=== PATIENT | male | born 1960 | race Caucasian/White ===

== ENCOUNTER 2020-01-15 09:19 | Emergency (ER) | payer OTHER, SELFPAY ==
[2020-01-15] VITALS (20 sets, daily range): BP systolic 110–197; BP diastolic 58–98; PULSE 80–141; RESP 14–24; TEMP 36.8; O2SAT 94–100
--- NOTE | 2020-01-15 09:24 | ED_ITS ---
HPI - General Adult General Chief complaint: Arrhythmia/Palpitations Stated complaint: Pulmonary problems/heart gurgling Time Seen by Provider: 01/15/20 09:22 Source: patient Mode of arrival: Ambulatory Limitations: no limitations History of Present Illness HPI narrative: 59-year-old otherwise healthy male here for evaluation of some problems breathing and lightheaded and feel like there is problem with his heart. He states that the symptoms started approximately 15 days ago with what he describes as a panic attack. He has had a history of anxiety in the past but does not take any medications for. Does not remember exactly what caused the attack at the time. Since then he has had lightheadedness and feeling like his heart is beating fast in some shortness of breath. No fevers. Has never had anything like this in the past and has not tried anything for symptoms prior to arrival. Related Data Home Medications Medication Instructions Recorded Confirmed ibuprofen 400 mg PO Q6H PRN 01/15/20 01/15/20 zolpidem [Ambien] 5 mg PO BEDTIME PRN 01/15/20 01/15/20 Previous Rx's Medication Instructions Recorded metoprolol tartrate 12.5 mg PO DAILY #30 tab 01/15/20 Allergies Allergy/AdvReac Type Severity Reaction Status Date / Time No Known Drug Allergies Allergy Verified 01/15/20 09:30 Review of Systems Constitutional Constitutional: Denies chills, Denies fever(s) and Denies headache(s) ENT Ears, Nose, Mouth, and Throat: Denies headache(s) Cardiovascular Cardiovascular: Denies chest pain, Reports rapid heart rate, Reports irregular heart rhythm and Reports dyspnea Respiratory Respiratory: Denies cough and Reports dyspnea Gastrointestinal Gastrointestinal: Denies abdominal pain, Denies nausea and Denies vomiting Genitourinary Genitourinary: Denies dysuria Genitourinary: Denies dysuria Musculoskeletal Musculoskeletal: Denies arthralgias and Denies myalgias Integumentary/Breasts Skin/Breast: Denies rash Neurologic Neurologic: Denies behavioral changes and Denies headache(s) Psychiatric Psychiatric: Reports anxiety and Denies behavioral changes Hematologic/Lymphatic Hematologic/Lymphatic: Denies easy bleeding and Denies easy bruising Allergic/Immunologic Allergic/Immunologic: Denies urticaria Patient History Medical History Anxiety (Acute) Social History Smoking Status: Never smoker Exam Initial Vital Signs Initial Vital Signs: Vital Signs Temperature 98.3 F 01/15/20 09:20 Pulse Rate 122 H 01/15/20 09:20 Respiratory Rate 20 01/15/20 09:20 Blood Pressure 170/90 H 01/15/20 09:20 Pulse Oximetry 100 01/15/20 09:20 Const General: cooperative, comfortable and well developed Limitations: mental status not altered HENMT Head: normal to inspection and normocephalic Resp Effort & Inspection: normal respiratory effort Auscultation: clear to auscultation bilaterally Cardio Rate: tachycardic Rhythm: abnormal rhythm Pulses: radial pulses present GI Inspection: non-distended Palpation: soft Skin Lesions: no lesions Rashes: no rashes Neuro General: patient alert, patient awake and patient oriented x3 Cognition: normal cognition Speech: speech normal Extrem General: normal to inspection and capillary refill normal Psych Appearance: grossly normal and well kempt Course Orders Ordered: ED Orders 01/15/20 09:20 Complete Blood Count AUTO DIFF Stat Comprehensive Metabolic Panel Stat Lipase Stat Magnesium Stat Partial Thromboplastin Time Stat Prothrombin Time INR Stat 01/15/20 09:23 XR chest 1V Stat EKG-12 Lead Stat 01/15/20 10:21 CT chest w con Stat 01/15/20 11:51 COVID19 -ED/INPAT/OR/L&D Stat Discontinued Medications Sodium Chloride (Normal Saline 0.9%) 1,000 mls @ 1,000 mls/hr IV BOLUS ONE Stop: 01/15/20 11:20 Last Infusion: 01/15/20 12:18 Dose: 0 mls/hr Documented by: Admin: 01/15/20 10:46 Dose: 1,000 mls/hr Documented by: EUSEBIOOTESimeon Lorazepam (Ativan) 0.5 mg IV NOW ONE Stop: 01/15/20 10:23 Last Admin: 01/15/20 10:46 Dose: 0.5 mg Documented by: LESVIA Metoprolol Tartrate (Lopressor) 5 mg IV NOW ONE Stop: 01/15/20 09:27 Last Admin: 01/15/20 09:36 Dose: 5 mg Documented by: RUDDY Vital Signs Vital signs: Vital Signs - 8 hr 01/15/20 09:20 01/15/20 09:25 01/15/20 09:30 Temperature 98.3 F Pulse Rate 122 H 125 H 141 H Respiratory Rate 20 18 14 Blood Pressure 170/90 H 175/88 H Pulse Oximetry 100 98 98 01/15/20 09:45 01/15/20 09:46 01/15/20 09:50 Temperature Pulse Rate 124 H 95 H 92 H Respiratory Rate 24 14 14 Blood Pressure 110/58 L 110/58 L 121/72 Pulse Oximetry 97 96 96 01/15/20 10:00 01/15/20 10:15 01/15/20 10:30 Temperature Pulse Rate 94 H 98 H 101 H Respiratory Rate 17 14 15 Blood Pressure 124/83 122/90 Pulse Oximetry 95 96 97 01/15/20 10:31 01/15/20 10:46 01/15/20 11:00 Temperature Pulse Rate 90 92 H 84 Respiratory Rate 15 15 19 Blood Pressure 133/85 Pulse Oximetry 96 100 97 01/15/20 11:15 01/15/20 11:30 01/15/20 11:45 Temperature Pulse Rate 84 89 89 Respiratory Rate 19 19 21 Blood Pressure Pulse Oximetry 96 97 97 01/15/20 11:59 01/15/20 12:00 01/15/20 12:01 Temperature Pulse Rate 97 H 91 H 107 H Respiratory Rate 20 20 24 Blood Pressure 144/98 H 197/98 H Pulse Oximetry 99 99 94 01/15/20 12:15 Temperature Pulse Rate 99 H Respiratory Rate 17 Blood Pressure 136/82 Pulse Oximetry 99 Medical Decision Making Lab Data Lab results reviewed: Yes I reviewed the patient's lab results. Result diagrams: 01/15/20 09:20 01/15/20 09:20 Labs: Lab Results 01/15/20 01/15/20 01/15/20 Range/Units 09:20 09:20 09:20 WBC 8.6 (4.5-11.0) X10^3/uL RBC 4.55 (4.5-5.9) X10^6/uL Hgb 15.0 (13.5-17.5) g/dL Hct 43.8 (41-53) % MCV 96.3 (80-100) fL MCH 33.0 (26-34) PG MCHC 34.3 (30-36) % RDW 12.5 (11.6-14.8) % Plt Count 196 (150-400) X10^3/uL Neut % (Auto) 60.1 (50-75) % Lymph % (Auto) 30.1 (25-40) % Addison % (Auto) 7.7 (3-14) % Eos % (Auto) 1.5 L (2-4) % Baso % (Auto) 0.6 (0-2) % Neut # (Auto) 5200 (1139-3476) /uL Lymph # (Auto) 2600 (0255-6112) /uL Addison # (Auto) 700 (0-900) /uL Eos # (Auto) 100 (0-450) /uL Baso # (Auto) 100 (0-100) /uL PT 11.9 (10.1-12.7) SECONDS INR 1.0 (0.9-1.3) APTT 31 (26.4-36.2) SECONDS Sodium 140 (137-145) mmol/L Potassium 4.2 (3.4-5.1) mmol/L Chloride 103 (98-107) mmol/L Carbon Dioxide 31 (22-32) mmol/L BUN 17 (9-20) mg/dL Creatinine 0.99 (0.66-1.25) mg/dL Estimated GFR > 60.0 (>60) mL/min BUN/Creatinine Ratio 17.2 (6-22) Glucose 96 (70-100) mg/dL Calcium 9.9 (8.4-10.2) mg/dL Magnesium (1.6-2.3) mg/dL Total Bilirubin 0.7 (0.2-1.3) mg/dL AST 34 (17-59) IU/L ALT 38 (<50) IU/L Alkaline Phosphatase 78 (38-126) U/L Total Protein 7.9 (6.3-8.2) g/dL Albumin 4.7 (3.5-5.0) g/dL Globulin 3.2 (1.7-4.1) g/dL Albumin/Globulin Ratio 1.5 (1.0-2.8) Lipase 222 (23-300) U/L COVID-19 PCR (Negative) 01/15/20 01/15/20 Range/Units 09:20 11:51 WBC (4.5-11.0) X10^3/uL RBC (4.5-5.9) X10^6/uL Hgb (13.5-17.5) g/dL Hct (41-53) % MCV (80-100) fL MCH (26-34) PG MCHC (30-36) % RDW (11.6-14.8) % Plt Count (150-400) X10^3/uL Neut % (Auto) (50-75) % Lymph % (Auto) (25-40) % Addison % (Auto) (3-14) % Eos % (Auto) (2-4) % Baso % (Auto) (0-2) % Neut # (Auto) (2888-2059) /uL Lymph # (Auto) (1723-3038) /uL Addison # (Auto) (0-900) /uL Eos # (Auto) (0-450) /uL Baso # (Auto) (0-100) /uL PT (10.1-12.7) SECONDS INR (0.9-1.3) APTT (26.4-36.2) SECONDS Sodium (137-145) mmol/L Potassium (3.4-5.1) mmol/L Chloride (98-107) mmol/L Carbon Dioxide (22-32) mmol/L BUN (9-20) mg/dL Creatinine (0.66-1.25) mg/dL Estimated GFR (>60) mL/min BUN/Creatinine Ratio (6-22) Glucose (70-100) mg/dL Calcium (8.4-10.2) mg/dL Magnesium 2.2 (1.6-2.3) mg/dL Total Bilirubin (0.2-1.3) mg/dL AST (17-59) IU/L ALT (<50) IU/L Alkaline Phosphatase (38-126) U/L Total Protein (6.3-8.2) g/dL Albumin (3.5-5.0) g/dL Globulin (1.7-4.1) g/dL Albumin/Globulin Ratio (1.0-2.8) Lipase (23-300) U/L COVID-19 PCR Positive H (Negative) Imaging Data Chest x-ray: Radiologist's Impression: [address] [address] XRay Report Signed Patient: Librado Elizondo WMR#: [id number] : [id number]:[id number] Age/Sex: 59 / MDate of Service: 01/15/20 Loc: ED Accession Number: [id number] Procedure: XR chest 1V Ordering Provider: Prem Morgan D.O. PROCEDURE: XR CHEST 1V INDICATIONS: Shortness of breath TECHNIQUE: One view of the chest was acquired. COMPARISON: None. FINDINGS: Surgical changes and devices: None. Lungs and pleura: Vague focal opacity, left upper lobe, possibly representing focal left upper lobe mass versus mass-like consolidation. Lungs otherwise clear. No pleural effusions or pneumothorax. Mediastinum: Mediastinal contours appear normal. Heart size is normal. Bones and chest wall: No suspicious bony lesions. Overlying soft tissues appear unremarkable. IMPRESSION: Vague left upper lobe focal opacity, consider focal left upper lobe mass versus masslike consolidation. Recommend CT chest. Comment: Findings were discussed with Dr. Morgan at the time of study dictation. Dictated by: Tripp Gonzalez M.D. on 01/15/2020 at 9:57 Approved by: Tripp Gonzalez M.D. on 01/15/2020 at 10:05 CT scan - chest: Radiologist's Impression: [address] [address] [address] Scan Report Signed Patient: Librado Elizondo WMR#: [id number] : 1Acct:[id number] Age/Sex: 59 / MDate of Service: 01/15/20 Loc: ED Accession Number: [id number] Procedure: CT chest w con Ordering Provider: Prem Morgan D.O. PROCEDURE: CT CHEST W CON INDICATIONS: Left upper lobe mass CT recommended by reds TECHNIQUE: After the administration of intravenous contrast, 5 mm thick sections acquired from the pulmonary apices to the posterior costophrenic angles. 1 mm axial lung, 5 mm thick coronal and sagittal reformats and 7 mm axial MIP were acquired. For radiation dose reduction, the following was used: automated exposure control, adjustment of mA and/or kV according to patient size. COMPARISON: [facility] , XR CHEST 1V, 01/15/2020, 9:28. FINDINGS: Image quality: Excellent. Lungs and pleura: There are multiple bilateral small and intermediate sized areas of relatively sharply demarcated alveolar infiltration within the upper, mid and lower lungs of this patient. No solid mass lesion is found, no suspicion for pulmonary embolus.. No pleural effusions or pneumothorax. Central and peripheral airways are patent and normal in caliber. Mediastinum: Heart size is normal. No pericardial effusion. No mediastinal or hilar adenopathy by size criteria. Thoracic aorta and central pulmonary arteries are normal in size. Esophagus is normal in caliber. No hiatal hernia. Bones and chest wall: No suspicious bony lesions. No vertebral body compression fractures. No axillary or supraclavicular adenopathy by size criteria. Thyroid gland appears normal. Abdomen: Visualized upper abdominal solid organs appear normal. Upper abdominal bowel loops are normal in caliber. IMPRESSION: Findings called to the emergency room physician caring for the patient. The imaging findings are highly suspicious for representing atypical infection such as viral etiology. No mass lesion present. The extent of disease is relatively p rominent bilaterally, but comprised of relatively radiolucent areas of small and intermediate sized sharply demarcated areas of alveolitis. The most prominent area corresponds to the left upper lobe region seen by plain film earlier today. Dictated by: Karlo Boykin M.D. on 01/15/2020 at 11:27 Approved by: Karlo Boykin M.D. on 01/15/2020 at 11:37 ECG Data Attestation: I personally reviewed and interpreted this ECG as follows: Prior ECG tracings: not available for review Interpretation: Atrial tachycardia with frequent PACs Ventricular rate of 113 Normal axis Normal QRS No ST T wave changes MDM Narrative Medical decision making narrative: Patient was tachycardic upon arrival. Initia lly it appeared that he was atrial fibrillation however receiving the EKG he is in sinus rhythm with frequent PACs. I did discuss the case and faxed the EKGs to Dr. Garvin with cardiology who agreed that it is sinus rhythm with frequent PACs. He recommended checking electrolytes which we did which were unremarkable and also sending the patient home with metoprolol and having him follow-up with his primary provider to discuss a Holter monitor and stress test and echocardiogram. I discussed all this with the patient. We initially received chest x-ray which was concerning for a left upper lobe mass/nodule. It was recommended that he have a CT scan of his chest which was ordered and received a call from Radiology that showed a viral pattern concerning for COVID-19. His subsequent COVID-19 testing was positive. Patient has no symptoms consistent with this. His last potential symptoms were greater than 2 weeks ago. I did discuss this with the patient. Informed him about self quarantine and contacting his work. We discussed return precautions with regard to this. He expressed understanding and agreement. Discharge Plan Departure Patient Disposition: Home Clinical Impression: Sinus tachycardia, Atrial premature contractions, 2019 novel coronavirus detected Instructions: DI for Tachycardia Activity Restrictions/Additional Instructions: Start taking the metoprolol that you were given a prescription for here in the emergency department as directed. I recommend that you contact your primary provider to discuss the indications for a Holter monitor, echocardiogram and stress test. If you have continued symptoms or worsening symptoms to include chest pain or shortness of breath or lightheadedness please return to the emergency department for further evaluation. It was also found on your workup today that you have COVID-19. It is important that you self quarantine. Is also important that you wearing face covering and wash your hands and stay away from others. Also recommend you contact your primary provider to discuss further workup and also recommend you contact your employer to let them know that you were positive. Prescriptions: New metoprolol tartrate 25 mg tablet 12.5 mg PO DAILY Qty: 30 RF: 0 No Action ibuprofen 200 mg Tablet 400 mg PO Q6H PRN (Reason: Pain (Scale Score 1-3)) RF: 0 zolpidem [Ambien] 5 mg Tablet 5 mg PO BEDTIME PRN (Reason: Insomnia) RF: 0 Stand Alone Forms: Work Release Note
[2020-01-15 09:35] LABS: Add Manual Diff / Slide Review NO; Basophils Absolute Auto 100 /uL (0-100); Basophils Percent Auto 0.6 % (0-2); Eosinophils Absolute Auto 100 /uL (0-450); Eosinophils Percent Auto 1.5 % (2-4); Hematocrit 43.8 % (41-53); Lymphocytes Absolute Auto 2600 /uL (1100-4500); Lymphocytes Percent Auto 30.1 % (25-40); Mean Corpuscular HGB Conc 34.3 % (30-36); Mean Corpuscular Volume 96.3 fL (80-100); Monocytes Absolute Auto 700 /uL (0-900); Monocytes Percent Auto 7.7 % (3-14); Neutrophils Absolute Auto 5200 /uL (1500-7000); Neutrophils Percent Auto 60.1 % (50-75); Platelet Count 196 X10^3/uL (150-400); Red Blood Cell Count 4.55 X10^6/uL (4.5-5.9); Red Cell Distribution Width 12.5 % (11.6-14.8); White Blood Cell Count 8.6 X10^3/uL (4.5-11.0)
[2020-01-15] MEDS: METOPROLOL TARTRATE 5 MG/5 ML INJ IV (09:36)
[2020-01-15 09:41] LABS: Prothrombin Time 11.9 SECONDS (10.1-12.7)
[2020-01-15 09:44] LABS: PTT Partial Thromboplastin Tim 31 SECONDS (26.4-36.2)
[2020-01-15 09:49] LABS: Alanine Aminotransferase 38 IU/L (<50); Albumin 4.7 g/dL (3.5-5.0); Albumin Globulin Ratio 1.5 (1.0-2.8); Alkaline Phosphatase 78 U/L (38-126); Aspartate Aminotransferase 34 IU/L (17-59); BUN Creatinine Ratio 17.2 (6-22); Bilirubin Total 0.7 mg/dL (0.2-1.3); Blood Urea Nitrogen 17 mg/dL (9-20); Calcium 9.9 mg/dL (8.4-10.2); Carbon Dioxide 31 mmol/L (22-32); Chloride 103 mmol/L (98-107); Estimated Glomerular Filt Rate > 60.0 mL/min (>60); Globulin 3.2 g/dL (1.7-4.1); Glucose 96 mg/dL (70-100); HEMOLYSIS < 15 (0-50); Lipase 222 U/L (23-300); Potassium 4.2 mmol/L (3.4-5.1); Sodium 140 mmol/L (137-145); Total Protein 7.9 g/dL (6.3-8.2)
[2020-01-15 09:59] LABS: Magnesium 2.2 mg/dL (1.6-2.3)
--- NOTE | 2020-01-15 10:21 | DI.CT.S_ITS ---
PROCEDURE: CT CHEST W CON INDICATIONS: Left upper lobe mass CT recommended by reds TECHNIQUE: After the administration of intravenous contrast, 5 mm thick sections acquired from the pulmonary apices to the posterior costophrenic angles. 1 mm axial lung, 5 mm thick coronal and sagittal reformats and 7 mm axial MIP were acquired. For radiation dose reduction, the following was used: automated exposure control, adjustment of mA and/or kV according to patient size. COMPARISON: [facility], CR, XR CHEST 1V, 01/15/2020, 9:28. FINDINGS: Image quality: Excellent. Lungs and pleura: There are multiple bilateral small and intermediate sized areas of relatively sharply demarcated alveolar infiltration within the upper, mid and lower lungs of this patient. No solid mass lesion is found, no suspicion for pulmonary embolus.. No pleural effusions or pneumothorax. Central and peripheral airways are patent and normal in caliber. Mediastinum: Heart size is normal. No pericardial effusion. No mediastinal or hilar adenopathy by size criteria. Thoracic aorta and central pulmonary arteries are normal in size. Esophagus is normal in caliber. No hiatal hernia. Bones and chest wall: No suspicious bony lesions. No vertebral body compression fractures. No axillary or supraclavicular adenopathy by size criteria. Thyroid gland appears normal. Abdomen: Visualized upper abdominal solid organs appear normal. Upper abdominal bowel loops are normal in caliber. IMPRESSION: Findings called to the emergency room physician caring for the patient. The imaging findings are highly suspicious for representing atypical infection such as viral etiology. No mass lesion present. The extent of disease is relatively prominent bilaterally, but comprised of relatively radiolucent areas of small and intermediate sized sharply demarcated areas of alveolitis. The most prominent area corresponds to the left upper lobe region seen by plain film earlier today. Dictated by: Karlo Boykin M.D. on 01/15/2020 at 11:27 Approved by: Karlo Boykin M.D. on 01/15/2020 at 11:37
[2020-01-15] MEDS: LORazepam 2 MG/ML INJ 0.5 MG IV (10:46)
[2020-01-15] MEDS: SODIUM CHLORIDE 0.9% 1,000 ML 1000 ML IV (10:46)
[2020-01-15 12:21] LABS: COVID19 -Nasal RAPID POSITIVE (Negative)
== END 2020-01-15 12:55 | disposition home or self-care (01) ==
PROVIDERS: Emergency Provider Emergency Medicine
DX: U07.1 COVID-19 (principal); R00.0 Tachycardia, unspecified; R06.00 Dyspnea, unspecified; I49.1 Atrial premature depolarization
CPT/HCPCS: 36415; 71045; 71260; 80053; 83690; 83735; 85025; 85610; 85730; 87635; 93005; 93010; 96361; 96374; 96375; 99284; J2060; Q9967

== ENCOUNTER → 2020-06-13 11:45 | Outpatient (CLI) | payer OTHER, SELFPAY ==
[2020-06-13 12:40] LABS: Cholesterol 207 mg/dL (140-199); HDL Cholesterol 58 mg/dL (40-60); Triglycerides 471 mg/dL (35-150)
== END ==
PROVIDERS: PCP Family Medicine; Referring Provider Internal Medicine Cardiovascular Disease; Visit Provider Internal Medicine Cardiovascular Disease
DX: E78.5 Hyperlipidemia, unspecified (principal)
CPT/HCPCS: 36415; 80061

== ENCOUNTER → 2020-08-07 10:20 | Outpatient (CLI) | payer OTHER, SELFPAY ==
[2020-08-07 11:23] LABS: Cholesterol 209 mg/dL (140-199); HDL Cholesterol 53 mg/dL (40-60); LDL Cholesterol Calculated 76 mg/dL (<100); Triglycerides 398 mg/dL (35-150)
== END ==
PROVIDERS: PCP Family Medicine; Referring Provider Internal Medicine Cardiovascular Disease; Visit Provider Internal Medicine Cardiovascular Disease
DX: E78.2 Mixed hyperlipidemia (principal); E78.5 Hyperlipidemia, unspecified
CPT/HCPCS: 36415; 80061

== ENCOUNTER 2021-04-01 09:30 | Emergency (ER) | payer OTHER, SELFPAY ==
[2021-04-01 09:35] VITALS: BP 163/79; PULSE 70; RESP 16; TEMP 36.4; O2SAT 99; BMI 24.4
--- NOTE | 2021-04-01 09:45 | DI.US.S_ITS ---
PROCEDURE: US PERIPH VENOUS LOW EXTREM RT INDICATIONS: REDNESS MEDIAL KNEE TECHNIQUE: Real-time imaging, as well as color and pulse Doppler interrogation, were performed of the lower extremity deep veins from the inguinal ligament to the popliteal fossa. COMPARISON: None. FINDINGS: The common femoral, femoral and popliteal veins are normally compressible, and free of intraluminal thrombus. Color and pulse Doppler demonstrate normal phasic intraluminal flow. There is normal augmentation response to distal compression maneuver. IMPRESSION: No DVT in the right lower extremity. Dictated by: Harley Jean M.D. on 04/01/2021 at 10:37 Approved by: Harley Jean M.D. on 04/01/2021 at 10:38
--- NOTE | 2021-04-01 09:46 | ED_ITS ---
HPI - Extremity Problem General Chief complaint: Extremity Problem,Nontraumatic Stated complaint: RT LEG POSS BLOOD CLOT/KNEE SWOLLEN/FOOT NUMB Time Seen by Provider: 04/01/21 09:37 Source: patient Mode of arrival: Ambulatory History of Present Illness HPI Narrative: 60-year-old male nonsmoker with noncontributory medical history presents from the [place] walk-in clinic for evaluation his right knee. He states that he has developed some pain behind his right knee and has some redness and warmth along the medial knee in the absence of any injury or overuse. He has had no fever or chills. He states the pain is worse when he walks and improves with rest. He denies any history of the same. He denies any calf or thigh pain. He denies recent travel, trauma, prior clot. Additionally he has some numbness on the bottom of his right foot which has been present for the past 2-3 days. He denies any back pain groin numbness, tingling or weakness. He was seen at the walk-in clinic and sent here for evaluation of a DVT Related Data Home Medications Medication Instructions Recorded Confirmed ibuprofen 200 mg tablet 400 mg PO Q6H PRN 01/15/20 08/26/20 rosuvastatin 10 mg tablet (Crestor) 10 mg PO DAILY 08/26/20 08/26/20 Previous Rx's Medication Instructions Recorded sildenafil 25 mg tablet 25 mg PO DAILY #20 tab 03/19/20 sertraline 25 mg tablet 25 mg PO DAILY #90 tab 05/28/20 metoprolol tartrate 25 mg tablet 12.5 mg PO DAILY #30 tab 06/04/20 zolpidem 5 mg tablet See Rx Instructions .ROUTE 02/25/21 .COMPLEX #30 tab cephalexin 500 mg capsule 500 mg PO Q6H 7 Days #28 cap 04/01/21 Allergies Allergy/AdvReac Type Severity Reaction Status Date / Time No Known Drug Allergies Allergy Verified 08/26/20 10:15 Review of Systems Review of Systems Narrative: GENERAL: Denies chills, fatigue, malaise, fever, sweats. HEENT: Denies sinus pain, ear pain, sore throat, difficulty swallowing, dizziness. RESPIRATORY: Denies dyspnea, cough, wheezing, hemoptysis, sputum. CARDIOVASCULAR: Denies chest pain, palpitations, orthopnea, edema, GASTROINTESTINAL: Denies nausea, vomiting, abdominal pain, diarrhea, constipation, melena. : Denies dysuria, frequency, incontinence, hematuria, urinary retention. MUSCULOSKELETAL: See HPI SKIN: See HPI NEUROLOGIC: Denies weakness, headache, numbness, change in speech, confusion, seizures, incoordination. PSYCHIATRIC: No concerning psychosocial issues. 12 point review of systems is negative except for those stated above Patient History Medical History (Updated 04/01/21 @ 10:35 by Denys Hair DO) Anxiety Hyperlipidemia Insomnia Tendonitis of finger Social History (System 02/01/20 @ 10:28 by Sofía Mcfarlane) Smoking Status: Never smoker Smoking Status: Never smoker alcohol intake frequency: 0-2 drinks per day Substance Use Type: does not use Exam Narrative Exam Narrative: GEN: AOx3 and in mild distress EYES: Pupils are equal, round, and reactive to light and accommodation. Extraoccular muscles are intact bilaterally. There is no subconjunctival hemorrhage or exudate. CHEST: Lungs are clear to auscultation bilaterally and free of wheezes, rales, or rhonchi. Heart rate is regular rhythm, there are no murmurs, clicks, rubs, or gallops. There is no chest wall tenderness. ABD: Abdomen is soft and nontender. There is no guarding or rebound. Bowel sounds are normal in all 4 quadrants. There is no mass or organomegaly. EXT: Redness, warmth and mild tenderness along the medial joint line of right knee, no effusion, no significant pain with any passive or active range of motion, no ligamentous instability. No swelling SKIN: Warm, pink, and dry. No erythema or rash Initial Vital Signs Initial Vital Signs: Vital Signs Temperature 97.6 F 04/01/21 09:35 Pulse Rate 70 04/01/21 09:35 Respiratory Rate 16 04/01/21 09:35 Blood Pressure 163/79 H 04/01/21 09:35 Pulse Oximetry 99 04/01/21 09:35 Course Orders Ordered: ED Orders 04/01/21 09:45 US periph venous low extrem rt Stat Vital Signs Vital signs: Vital Signs - 8 hr 04/01/21 09:35 Temperature 97.6 F Pulse Rate 70 Respiratory Rate 16 Blood Pressure 163/79 H Pulse Oximetry 99 MDM - Extremity (Nontraumatic) MDM Narrative Medical decision making narrative: Multiple etiologies for patient's symptoms considered including: [DVT versus cellulitis versus septic arthritis versus gout versus other Patient's symptomms, history and imaging would suggest against DVT. Patient's exam demonstrates no painful passive or active range of motion of the knee and very minimal if any effusion, this would suggest against septic arthritis or gouty arthritis. Isolated erythema, warmth and tenderness most consistent with cellulitis. Findings and discharge diagnosis discussed with patient/family followed by verbalization of understanding Return precautions discussed with patient/family whom verbalize understanding. Discharge Plan Departure Patient Disposition: Home Clinical Impression: Cellulitis Instructions: DI for Cellulitis -- Adult Activity Restrictions/Additional Instructions: *You have been diagnosed with [cellulitis of right medial knee, your history, physical exam and ultrasound are reassuring and there is no evidence of a clot. *What to do: *Please continue to take your regular medications as directed. [ x] New medication prescriptions sent to your pharmacy: [[facility] in [place] ] [ ] New medication written as a paper prescription [ ] No new medications given *Please follow up with your primary care provider in 2-3 days, call for an appointment. Let them know you were seen in the Emergency Department and that we ask that you be seen in follow up. We will electronically transmit a record of today's note if your PCP is in our system *Return to Emergency Department if you should have any new, worsening or concerning symptoms, such as [fever greater than 101 F, shaking chills, worsening pain, persistent vomiting or other bothersome symptoms] Prescriptions: New cephalexin 500 mg capsule 500 mg PO Q6H 7 Days Qty: 28 0RF No Action sildenafil 25 mg tablet 25 mg PO DAILY Qty: 20 1RF Rx Instructions: 30-45 mins prior to sexual activity. sertraline 25 mg tablet 25 mg PO DAILY Qty: 90 1RF metoprolol tartrate 25 mg tablet 12.5 mg PO DAILY Qty: 30 0RF zolpidem 5 mg tablet See Rx Instructions .ROUTE .COMPLEX Qty: 30 0RF Rx Instructions: Take 1 tablet by mouth at bedtime for insomnia; rosuvastatin [Crestor] 10 mg tablet 10 mg PO DAILY 0RF ibuprofen 200 mg Tablet 400 mg PO Q6H PRN (Reason: Pain (Scale Score 1-3)) 0RF Referrals: Brien Michelle DO [Primary Care Provider] -
--- NOTE | 2021-04-01 10:42 | ED_ITS ---
HPI - Extremity Problem General Chief complaint: Extremity Problem,Nontraumatic Stated complaint: RT LEG POSS BLOOD CLOT/KNEE SWOLLEN/FOOT NUMB Time Seen by Provider: 04/01/21 09:37 Source: patient Mode of arrival: Ambulatory Related Data Home Medications Medication Instructions Recorded Confirmed ibuprofen 200 mg tablet 400 mg PO Q6H PRN 01/15/20 08/26/20 rosuvastatin 10 mg tablet (Crestor) 10 mg PO DAILY 08/26/20 08/26/20 Previous Rx's Medication Instructions Recorded sildenafil 25 mg tablet 25 mg PO DAILY #20 tab 03/19/20 sertraline 25 mg tablet 25 mg PO DAILY #90 tab 05/28/20 metoprolol tartrate 25 mg tablet 12.5 mg PO DAILY #30 tab 06/04/20 cephalexin 500 mg capsule 500 mg PO Q6H 7 Days #28 cap 04/01/21 zolpidem 5 mg tablet See Rx Instructions .ROUTE 04/01/21 .COMPLEX #30 tab Allergies Allergy/AdvReac Type Severity Reaction Status Date / Time No Known Drug Allergies Allergy Verified 08/26/20 10:15 Patient History Medical History (Updated 04/01/21 @ 10:35 by Denys Hair DO) Anxiety Hyperlipidemia Insomnia Tendonitis of finger Social History (System 02/01/20 @ 10:28 by Sofía Mcfarlane) Smoking Status: Never smoker Smoking Status: Never smoker alcohol intake frequency: 0-2 drinks per day Substance Use Type: does not use Exam Initial Vital Signs Initial Vital Signs: Vital Signs Temperature 97.6 F 04/01/21 09:35 Pulse Rate 70 04/01/21 09:35 Respiratory Rate 16 04/01/21 09:35 Blood Pressure 163/79 H 04/01/21 09:35 Pulse Oximetry 99 04/01/21 09:35 Course Orders Ordered: ED Orders 04/01/21 09:45 US periph venous low extrem rt Stat Vital Signs Vital signs: Vital Signs - 8 hr 04/01/21 09:35 Temperature 97.6 F Pulse Rate 70 Respiratory Rate 16 Blood Pressure 163/79 H Pulse Oximetry 99 MDM - Extremity (Nontraumatic) Imaging Data US - DVT: Radiologist's Impression: Launch?[address] [address] Ultrasound Report Signed Patient: Librado Elizondo MR#: [id number] : 1960 Acct:[id number] Age/Sex: 60 / M Date of Service: 04/01/21 Loc: ED Accession Number: [id number] ?? Procedure: US periph venous low extrem rt Ordering Provider: Denys Hair D.O. PROCEDURE:? US PERIPH VENOUS LOW EXTREM RT ? INDICATIONS:? REDNESS MEDIAL KNEE ? TECHNIQUE:? Real-time imaging, as well as color and pulse Doppler interrogation, were performed of the lower extremity deep veins from the inguinal ligament to the popliteal fossa.? ? COMPARISON:? None. ? FINDINGS:? The common femoral, femoral and popliteal veins are normally compressible, and free of intraluminal thrombus.? Color and pulse Doppler demonstrate normal phasic intraluminal flow.? There is normal augmentation response to distal compression maneuver. ? ? IMPRESSION:? No DVT in the right lower extremity. ? ? Dictated by: Harley Jean M.D. on 04/01/2021 at 10:37 ? ? Approved by: Harley Jean M.D. on 04/01/2021 at 10:38 ? Discharge Plan Departure Patient Disposition: Home Clinical Impression: Cellulitis Instructions: DI for Cellulitis -- Adult Activity Restrictions/Additional Instructions: *You have been diagnosed with [cellulitis of right medial knee, your history, physical exam and ultrasound are reassuring and there is no evidence of a clot. *What to do: *Please continue to take your regular medications as directed. [ x] New medication prescriptions sent to your pharmacy: [[facility] in [place] ] [ ] New medication written as a paper prescription [ ] No new medications given *Please follow up with your primary care provider in 2-3 days, call for an appointment. Let them know you were seen in the Emergency Department and that we ask that you be seen in follow up. We will electronically transmit a record of today's note if your PCP is in our system *Return to Emergency Department if you should have any new, worsening or concerning symptoms, such as [fever greater than 101 F, shaking chills, worsening pain, persistent vomiting or other bothersome symptoms] Prescriptions: New cephalexin 500 mg capsule 500 mg PO Q6H 7 Days Qty: 28 0RF No Action sildenafil 25 mg tablet 25 mg PO DAILY Qty: 20 1RF Rx Instructions: 30-45 mins prior to sexual activity. sertraline 25 mg tablet 25 mg PO DAILY Qty: 90 1RF metoprolol tartrate 25 mg tablet 12.5 mg PO DAILY Qty: 30 0RF zolpidem 5 mg tablet See Rx Instructions .ROUTE .COMPLEX Qty: 30 0RF Rx Instructions: Take 1 tablet by mouth at bedtime for insomnia; rosuvastatin [Crestor] 10 mg tablet 10 mg PO DAILY 0RF ibuprofen 200 mg Tablet 400 mg PO Q6H PRN (Reason: Pain (Scale Score 1-3)) 0RF Referrals: Brien Michelle DO [Primary Care Provider] -
--- NOTE | 2021-04-01 10:58 | PC.NURSE ---
area on rt knee about 8cm round.
[2021-04-01 10:59] VITALS: BP 134/89; RESP 16
== END 2021-04-01 10:59 | disposition home or self-care (01) ==
PROVIDERS: Emergency Provider Emergency Medicine; PCP Family Medicine
DX: L03.115 Cellulitis of right lower limb (principal)
CPT/HCPCS: 93971; 99281; 99283

== ENCOUNTER → 2021-07-02 11:38 | Outpatient (CLI) | payer OTHER, SELFPAY ==
[2021-07-02 12:17] LABS: Hemoglobin A1C% w Est Avg Glu 5.4 % (4.0-6.0)
[2021-07-02 12:19] LABS: Cholesterol 198 mg/dL (140-199); HDL Cholesterol 70 mg/dL (40-60); LDL Cholesterol Calculated 71 mg/dL (<100); Triglycerides 285 mg/dL (35-150)
== END ==
PROVIDERS: PCP Family Medicine; Referring Provider Internal Medicine Cardiovascular Disease; Visit Provider Internal Medicine Cardiovascular Disease
DX: E78.1 Pure hyperglyceridemia (principal); E78.2 Mixed hyperlipidemia
CPT/HCPCS: 36415; 80061; 83036

== ENCOUNTER → 2022-10-29 11:05 | Outpatient (CLI) | payer OTHER, SELFPAY ==
[2022-10-29 12:27] LABS: Cholesterol 185 mg/dL (140-199); HDL Cholesterol 58 mg/dL (40-60); LDL Cholesterol Calculated 60 mg/dL (<100); Triglycerides 335 mg/dL (35-150)
== END ==
PROVIDERS: PCP Family Medicine; Referring Provider Internal Medicine Cardiovascular Disease; Visit Provider Internal Medicine Cardiovascular Disease
DX: E78.5 Hyperlipidemia, unspecified (principal)
CPT/HCPCS: 36415; 80061

== ENCOUNTER → 2022-12-08 11:09 | Outpatient (CLI) | payer OTHER, SELFPAY ==
[2022-12-10 21:56] LABS: Fecal Immunochemical Test Negative (Negative)
== END ==
PROVIDERS: PCP Family Medicine; Referring Provider Family Medicine; Visit Provider Family Medicine
DX: Z12.11 Encounter for screening for malignant neoplasm of colon (principal)
CPT/HCPCS: 82274

== ENCOUNTER → 2023-04-11 09:41 | Outpatient (CLI) | payer OTHER, SELFPAY ==
[2023-04-11 10:43] LABS: Add Manual Diff / Slide Review NO; Basophils Absolute Auto 0 /uL (0-100); Basophils Percent Auto 0.6 % (0-2); Eosinophils Absolute Auto 300 /uL (0-450); Eosinophils Percent Auto 5.3 % (2-4); Hematocrit 41.2 % (41-53); Lymphocytes Absolute Auto 2000 /uL (1100-4500); Lymphocytes Percent Auto 37.7 % (25-40); Mean Corpuscular HGB Conc 33.9 % (30-36); Mean Corpuscular Hemoglobin 32.8 PG (26-34); Mean Corpuscular Volume 96.7 fL (80-100); Monocytes Absolute Auto 400 /uL (0-900); Monocytes Percent Auto 6.9 % (3-14); Neutrophils Absolute Auto 2700 /uL (1500-7000); Neutrophils Percent Auto 49.5 % (50-75); Platelet Count 265 X10^3/uL (150-400); Red Blood Cell Count 4.26 X10^6/uL (4.5-5.9); White Blood Cell Count 5.4 X10^3/uL (4.5-11.0)
[2023-04-11 11:09] LABS: Alanine Aminotransferase 39 IU/L (<50); Albumin 4.6 g/dL (3.5-5.0); Albumin Globulin Ratio 1.6 (1.0-2.8); Alkaline Phosphatase 56 U/L (38-126); Aspartate Aminotransferase 34 IU/L (17-59); BUN Creatinine Ratio 14.8 (6-22); Bilirubin Total 0.7 mg/dL (0.2-1.3); Blood Urea Nitrogen 13 mg/dL (9-20); Calcium 10.2 mg/dL (8.4-10.2); Carbon Dioxide 29 mmol/L (22-32); Chloride 102 mmol/L (98-107); Cholesterol 185 mg/dL (140-199); Estimated Glomerular Filt Rate > 60 mL/min (>60); Globulin 2.8 g/dL (1.7-4.1); Glucose 88 mg/dL (80-110); HDL Cholesterol 54 mg/dL (40-60); HEMOLYSIS < 15 (0-50); LDL Cholesterol Calculated 62 mg/dL (<100); Potassium 4.8 mmol/L (3.4-5.1); Sodium 138 mmol/L (137-145); Total Protein 7.4 g/dL (6.3-8.2); Triglycerides 347 mg/dL (35-150)
[2023-04-20 06:36] LABS: Percent Free Testosterone 3.06 % (1.50-4.20); Testosterone Free 6.96 ng/dL (5.00-21.00); Testosterone Total 227.5 ng/dL (264.0-916.0)
== END ==
LOC: LAB 09:42
PROVIDERS: PCP Family Medicine; Referring Provider Family Medicine; Visit Provider Family Medicine
DX: E78.5 Hyperlipidemia, unspecified (principal); N52.9 Male erectile dysfunction, unspecified
CPT/HCPCS: 36415; 80053; 80061; 84402; 84403; 85025

== ENCOUNTER → 2023-08-18 09:43 | Outpatient (CLI) | payer OTHER, SELFPAY ==
[2023-08-18 13:50] LABS: Prostate Specific Antigen Scrn 1.32 ng/mL (0.1-4.0)
== END ==
PROVIDERS: PCP Family Medicine; Referring Provider Family Medicine; Visit Provider Family Medicine
DX: Z12.5 Encounter for screening for malignant neoplasm of prostate (principal); R79.89 Other specified abnormal findings of blood chemistry
CPT/HCPCS: 36415; 84402; 84403; G0103

== ENCOUNTER → 2024-01-09 09:08 | Outpatient (CLI) | payer OTHER, SELFPAY ==
[2024-01-14 09:40] LABS: Percent Free Testosterone 3.66 % (1.50-4.20); Testosterone Free 10.13 ng/dL (5.00-21.00); Testosterone Total 276.9 ng/dL (264.0-916.0)
== END ==
PROVIDERS: PCP Family Medicine; Referring Provider Family Medicine; Visit Provider Family Medicine
DX: R79.89 Other specified abnormal findings of blood chemistry (principal)
CPT/HCPCS: 36415; 84402; 84403

== ENCOUNTER → 2024-07-24 09:12 | Outpatient (CLI) | payer OTHER, SELFPAY ==
[2024-07-24 10:39] LABS: Add Manual Diff / Slide Review NO; Basophils Absolute Auto 0 /uL (0-100); Basophils Percent Auto 0.6 % (0-2); Eosinophils Absolute Auto 100 /uL (0-450); Eosinophils Percent Auto 2.3 % (2-4); Hematocrit 44.1 % (41-53); Hemoglobin 15.3 g/dL (13.5-17.5); Lymphocytes Absolute Auto 1700 /uL (1100-4500); Lymphocytes Percent Auto 33.3 % (25-40); Mean Corpuscular HGB Conc 34.8 % (30-36); Mean Corpuscular Hemoglobin 33.7 PG (26-34); Monocytes Absolute Auto 500 /uL (0-900); Neutrophils Absolute Auto 2900 /uL (1500-7000); Neutrophils Percent Auto 54.8 % (50-75); Platelet Count 253 X10^3/uL (150-400); Red Blood Cell Count 4.55 X10^6/uL (4.5-5.9); Red Cell Distribution Width 13.1 % (11.6-14.8); White Blood Cell Count 5.3 X10^3/uL (4.5-11.0)
[2024-07-24 11:13] LABS: Alanine Aminotransferase 25 IU/L (<50); Albumin 4.7 g/dL (3.5-5.0); Alkaline Phosphatase 66 U/L (38-126); Aspartate Aminotransferase 33 IU/L (17-59); BUN Creatinine Ratio 17.8 (6-22); Blood Urea Nitrogen 18 mg/dL (9-20); Calcium 9.6 mg/dL (8.4-10.2); Carbon Dioxide 26 mmol/L (22-32); Chloride 104 mmol/L (98-107); Cholesterol 190 mg/dL (140-199); Estimated Glomerular Filt Rate > 60 mL/min (>60); Globulin 2.4 g/dL (1.7-4.1); Glucose 88 mg/dL (70-99); HDL Cholesterol 66 mg/dL (40-60); HEMOLYSIS < 15 (0-50); LDL Cholesterol Calculated 83 mg/dL (<100); Sodium 138 mmol/L (137-145); Total Protein 7.1 g/dL (6.3-8.2); Triglycerides 205 mg/dL (35-150)
[2024-07-24 11:42] LABS: Prostate Specific Antigen Scrn 1.56 ng/mL (0.1-4.0)
[2024-08-10 08:11] LABS: Percent Free Testosterone 3.79 % (1.50-4.20); Testosterone Total 395.8 ng/dL (264.0-916.0)
== END ==
PROVIDERS: PCP Family Medicine; Referring Provider Family Medicine; Visit Provider Family Medicine
DX: Z12.5 Encounter for screening for malignant neoplasm of prostate (principal); E78.5 Hyperlipidemia, unspecified; R79.89 Other specified abnormal findings of blood chemistry
CPT/HCPCS: 36415; 80053; 80061; 84402; 84403; 85025; G0103